=== PATIENT | male | born 1960 | race Caucasian/White ===

== ENCOUNTER 2017-06-19 23:03 | Observation (INO) | payer OTHER ==
[~2017-06-19] VITALS: Ht 167.6 cm; Wt 115.2 kg
[2017-06-19] MEDS ORDERED: FENTANYL CITRATE INJ 50 MCG/1 ML 2 ML VIAL IV STA (23:23)
[2017-06-19] MEDS ORDERED: LOSA1TAB PO (23:40)
[2017-06-19] MEDS ORDERED: HYDR25TA4 PO (23:41)
[2017-06-19] MEDS ORDERED: MONT1TAB3 PO (23:42)
[2017-06-19] MEDS ORDERED: CLR10 PO (23:42)
[2017-06-19] MEDS ORDERED: POTA10CA28 PO (23:43)
[2017-06-19 23:49] LABS: ALT/SGPT 67 U/L (12-78); BLOOD UREA NITROGEN 17 mg/dl (7-18); BUN/CREATININE RATIO 17.6 (10-20); CARBON DIOXIDE 30 mmol/L (21-32); CHLORIDE 103 mmol/L (98-107); CREATININE 0.96 mg/dl (0.60-1.40); GLUCOSE 139 mg/dl (70-99); MAGNESIUM 2.2 mg/dl (1.8-2.4); POTASSIUM 3.2 mmol/L (3.5-5.1); SODIUM 140 mmol/L (136-145)
[2017-06-19 23:54] LABS: ALKALINE PHOSPHATASE 48 U/L (45-117); AST/SGOT 28 U/L (15-37)
--- NOTE | 2017-06-19 23:57 | EMERGENCY ROOM VISIT NOTE ---
History Report prepared by Renard: Michel Spence Under the Supervision of: Dr. Mel Jimenez D.O. First contact with patient: 23:07 Chief Complaint: CHEST PAIN Stated Complaint: CHEST PAIN, SOB History of Present Illness The patient is a 57 year old male who presents to the Emergency Room with complaints of constant chest pressure starting a few hours prior to arrival while not doing anything. He states that for the past four days he was having indigestion, which is not out of the ordinary due to GERD, and then tonight the pain got much worse. The patient is additionally complaining of shortness of breath, high blood pressure, light headedness, some sweating, and left shoulder , arm, and hand pain, and he has been having some left foot tingling. He states that the breathing treatment that he got en route helped the pain, and the nitro and morphine he got did not help as much. The patient additionally adds that he has chronic right sided abdominal pain which started a few years ago after getting his gall bladder out, and he has chronic dry mouth and eyes at night when he sleeps. He notes that he does have sleep apnea. The patient states that he has had a heart catheterization, though he never had a stent placed. He adds that he has a history of hypertension, and he takes losartan. The patient states that he has never smoked. Pt denies headache, change in vision, fevers, nausea, vomiting, diarrhea, pain with urination, and melena. Pt given asa, nitro, and neb tx by EMS prior to arrival. States he feels improved since treatments. No recent illness/URI symptoms. Source of History: patient Onset: a couple hours prior to arrival Position: chest Quality: pressure Timing: constant Associated Symptoms: + SOB Note: Associated symptoms: high blood pressure, light headedness, some sweating, and left shoulder, arm, and hand pain, and he has been having some left foot tingling Review of Systems See HPI for pertinent positives & negatives. A total of 10 systems reviewed and were otherwise negative. Past Medical & Surgical Medical Problems: (1) Chest pain (2) Chronic RUQ pain (3) HTN (hypertension) Surgical Problems: (1) History of cholecystectomy Social History Smoking Status: Never Smoker Marital Status: Occupation Status: retired Current/Historical Medications Scheduled Hydrochlorothiazide (Hctz), 25 MG PO DAILY Loratadine (Claritin), 10 MG PO DAILY Losartan Potassium (Cozaar), 25 MG PO BID Montelukast Sodium (Singulair), 10 MG PO DAILY Potassium Chloride (Micro-K Ext Rel), Unknown Dose PO DAILY Allergies Coded Allergies: No Known Allergies (Unverified , 06/19/17) Physical Exam Vital Signs Date Time Temp Pulse Resp B/P (MAP) Pulse Ox O2 Delivery O2 Flow Rate FiO2 06/20/17 01:03 63 14 123/69 95 Room Air 06/19/17 23:41 71 18 116/64 95 Room Air 06/19/17 23:13 76 06/19/17 23:07 95 Room Air 06/19/17 23:07 36.9 79 16 130/70 95 Room Air 06/19/17 23:07 95 Room Air Physical Exam GENERAL: alert, well appearing, well nourished, no distress, non-toxic EYE EXAM: normal conjunctiva, PERRL and EOM's grossly intact OROPHARYNX: no exudate, no erythema, lips, buccal mucosa, and tongue normal and mucous membranes are moist NECK: supple, no nuchal rigidity, no adenopathy, non-tender LUNGS: Clear to auscultation. Normal chest wall mechanics HEART: no murmurs, S1 normal and S2 normal CHEST: no reproducible chest pain ABDOMEN: Right upper quadrant pain (chronic per patient) abdomen soft, normo- active bowel sounds, no masses, no rebound or guarding. BACK: Back is symmetrical on inspection and there is no deformity, no midline tenderness, no CVA tenderness. SKIN: no rashes and no bruising UPPER EXTREMITIES: Tenderness at the left shoulder near the AC joint. upper extremities are grossly normal. LOWER EXTREMITIES: No pitting edema. NEURO EXAM: Normal sensorium, cranial nerves II-XII grossly intact, normal speech, no gross weakness of arms, no gross weakness of legs. Gross sensation intact. Medical Decision & Procedures ER Provider Diagnostic Interpretation: Radiology results have been interpreted by me. No cardiomegaly. No effusion. No wide mediastinum. No focal infiltrate. No pulmonary edema. Laboratory Results 06/19/17 22:21 Red Blood Count 4.95, Mean Corpuscular Volume 89.3, Mean Corpuscular Hemoglobin 31.3, Mean Corpuscular Hemoglobin Concent 35.1, Mean Platelet Volume 9.5, Neutrophils (%) (Auto) 62.2, Lymphocytes (%) (Auto) 28.5, Monocytes (%) (Auto) 7.3, Eosinophils (%) (Auto) 1.2, Basophils (%) (Auto) 0.5, Neutrophils # (Auto) 5.83, Lymphocytes # (Auto) 2.68, Monocytes # (Auto) 0.69, Eosinophils # (Auto) 0.11, Basophils # (Auto) 0.05 Test 06/19/17 22:21 White Blood Count 9.39 K/uL (4.8-10.8) Red Blood Count 4.95 M/uL (4.7-6.1) Hemoglobin 15.5 g/dL (14.0-18.0) Hematocrit 44.2 % (42-52) Mean Corpuscular Volume 89.3 fL (80-100) Mean Corpuscular Hemoglobin 31.3 pg (25-34) Mean Corpuscular Hemoglobin Concent 35.1 g/dl (32-36) Platelet Count 200 K/uL (130-400) Mean Platelet Volume 9.5 fL (7.4-10.4) Neutrophils (%) (Auto) 62.2 % Lymphocytes (%) (Auto) 28.5 % Monocytes (%) (Auto) 7.3 % Eosinophils (%) (Auto) 1.2 % Basophils (%) (Auto) 0.5 % Neutrophils # (Auto) 5.83 K/uL (1.4-6.5) Lymphocytes # (Auto) 2.68 K/uL (1.2-3.4) Monocytes # (Auto) 0.69 K/uL (0.11-0.59) Eosinophils # (Auto) 0.11 K/uL (0-0.5) Basophils # (Auto) 0.05 K/uL (0-0.2) RDW Standard Deviation 43.7 fL (36.4-46.3) RDW Coefficient of Variation 13.4 % (11.5-14.5) Immature Granulocyte % (Auto) 0.3 % Immature Granulocyte # (Auto) 0.03 K/uL (0.00-0.02) Platelet Estimate NORMAL Red Blood Cell Morphology Unremarkable Prothrombin Time 10.5 SECONDS (9.0-12.0) Prothromb Time International Ratio 1.0 (0.9-1.1) D-Dimer 200 ug/L FEU (0-500) Estimated Average Glucose 111 mg/dl Hemoglobin A1c 5.5 % (4.5-5.6) Total Bilirubin 0.5 mg/dl (0.2-1) Aspartate Amino Transf (AST/SGOT) 28 U/L (15-37) Alanine Aminotransferase (ALT/SGPT) 67 U/L (12-78) Alkaline Phosphatase 48 U/L (45-117) Pro-B-Type Natriuretic Peptide 32 pg/ml (0-900) Total Protein 7.3 gm/dl (6.4-8.2) Albumin 3.7 gm/dl (3.4-5.0) Globulin 3.6 gm/dl (2.5-4.0) Albumin/Globulin Ratio 1.0 (0.9-2) Lipase 179 U/L (73-393) Laboratory results per my review. Medications Administered Medications (Trade) Dose Ordered Sig/Peggy Route Start Time Stop Time Status Last Admin Dose Admin Fentanyl Citrate (Fentanyl Inj) 100 mcg NOW STAT IV 06/19/17 23:23 06/19/17 23:25 DC 06/19/17 23:43 100 MCG Al Hydroxide/Mg Hydroxide (Maalox Susp) 15 ml NOW STAT PO 06/20/17 00:50 06/20/17 00:51 DC 06/20/17 01:03 15 ML ECG Indication: chest pain Rate (beats per minute): 73 Rhythm: normal sinus Findings: no acute ischemic change, no ectopy, other (normal intervals, normal axis) ED Course 2307: The patient was evaluated in room A12. A complete history and physical exam was performed. 2323: Fentanyl 100mcg IV 0046: I reevaluated the patient, and I updated him on the results. I discussed the treatment plan with him, and he was agreeable. 0050: Maalox Susp 15ml PO 0100: I reviewed the patient's case with Dr. Sarkar. She will evaluate the patient for further management. Medical Decision Differential diagnosis: Etiologies such as cardiac ischemia, aortic dissection, pulmonary embolism, pneumonia, pneumothorax, musculoskeletal, infections, pericarditis, myocarditis , esophageal rupture, gastrointestinal, as well as others were entertained. Pt with risk factors for ACS and atypical presentation. Feels sx are different from GERD sx which he has a hx of. No recent URI. No risk factors for PE. Doubt dissection/hypertensive urgency or emergency. VS stable. Pt improved with meds. No evidence of pneumonia/effusion. Medication Reconcilliation Current Medication List: was personally reviewed by me Blood Pressure Screening Patient's blood pressure: Normal blood pressure Consults Time Called: 49 Consulting Physician: Dr. Sarkar Returned Call: 010 I reviewed the patient's case with Antonina. She will evaluate the patient with Dr. Manning for further management. Impression Primary Impression: Left sided chest pain Additional Impression: Trouble breathing Scribe Attestation The scribe's documentation has been prepared under my direction and personally reviewed by me in its entirety. I confirm that the note above accurately reflects all work, treatment, procedures, and medical decision making performed by me. Departure Information Dispostion Being Evaluated By Hospitalist Prescriptions Losartan Potassium (COZAAR) 25 Mg Tab 25 MG PO BID for 30 Days, #60 TAB Prov: Gene Sanford MD, PhD 06/21/17 Referrals No Doctor, Assigned (PCP) Patient Instructions My [facility] Problem Qualifiers
[2017-06-20] VITALS (10 sets, daily range): BP systolic 117–181; BP diastolic 64–95; PULSE 50–64; TEMP 36.5–37.1; O2SAT 91–100; Ht 167.6 cm; Wt 115.2 kg
[2017-06-20 00:02] LABS: PROTHROMBIN TIME (PATIENT) 10.5 SECONDS (9.0-12.0)
[2017-06-20 00:10] LABS: BASO % 0.5 %; BASO ABS # 0.05 K/uL (0-0.2); COMPLETE YES; EOS % 1.2 %; HEMATOCRIT 44.2 % (42-52); IG% 0.3 %; LYMPH % 28.5 %; LYMPH ABS # 2.68 K/uL (1.2-3.4); MEAN CELL VOLUME 89.3 fL (80-100); MEAN CORPUSCULAR HEMOGLOBIN 31.3 pg (25-34); MEAN CORPUSCULAR HGB CONC 35.1 g/dl (32-36); MEAN PLATELET VOLUME 9.5 fL (7.4-10.4); MONO % 7.3 %; NEUT % 62.2 %; PLATELET COUNT 200 K/uL (130-400); PLT ESTIMATE NORMAL; RED BLOOD COUNT 4.95 M/uL (4.7-6.1); WHITE BLOOD COUNT 9.39 K/uL (4.8-10.8)
[2017-06-20] MEDS ORDERED: ALUMINUM/MAGNESIUM SUSP 30 ML UDC PO STA (00:50)
[2017-06-20] MEDS ORDERED: NITROGLYCERIN 0.4 MG SL PER TAB CHARGE SL PRN (01:30)
[2017-06-20] MEDS ORDERED: ONDANSETRON INJ 2 MG/ML 2 ML VIAL IV PRN (01:30)
[2017-06-20] MEDS ORDERED: ALUMINUM/MAGNESIUM/SIMETH (MAALOX MAX) 30 ML UDC PO PRN (01:30)
[2017-06-20] MEDS ORDERED: MAGNESIUM HYDROXIDE SUSP 30 ML UDC PO PRN (01:30)
[2017-06-20] MEDS ORDERED: POLYETHYLENE (MIRALAX) 17 GM PACK PO PRN (01:30)
--- NOTE | 2017-06-20 01:34 | History and Physical ---
History & Physical Date & Time of Service: Jun 20, 2017 at 01:29 Chief Complaint: Chest Pain, Sob Primary Care Physician: No Doctor, Assigned History of Present Illness Source: patient This is a 57 y/o M w/ h/o HTN, sleep apnea, who presents with left sided chest pain that has gotten progressively worse of the last 4 days. Rates his pain a 7/ 10 radiating below his left scapula and down his left arm. He does have a history of indigestion that has been difficult to treat but this pain is much worse. He felt like someone was sitting on his chest. He also had accompanying shortness of breath, sweating and light headedness. EMS was called and he was given nebulizer treatment that helped his pain. He reports having right sided abdominal pain for several years s/p teodoro. He has had a heart cath in the past that was unremarkable ROS otherwise negative. Past Medical/Surgical History HTN Sleep apnea Family History HTN Social History Smoking Status: Never Smoker Alcohol Use: occasionally Marital Status: Housing status: lives with family Occupational Status: retired Allergies Coded Allergies: No Known Allergies (Unverified , 06/19/17) Home Medications Scheduled Hydrochlorothiazide (Hctz), 25 MG PO DAILY Loratadine (Claritin), 10 MG PO DAILY Losartan Potassium (Cozaar), 25 MG PO DAILY Montelukast Sodium (Singulair), 10 MG PO DAILY Potassium Chloride (Micro-K Ext Rel), Unknown Dose PO DAILY Review of Systems Constitutional: + sweats, No fever, No chills Respiratory: + shortness of breath, No cough, No sputum Cardiovascular: + chest pain Abdomen: + pain (Right sided), + nausea, No vomiting, No diarrhea, No constipation Musculoskeletal: + joint pain, + muscle pain Genitourinary - Male: No hematuria, No dysuria, No urinary frequency, No urinary urgency Physical Exam Vital Signs Date Time Temp Pulse Resp B/P (MAP) Pulse Ox O2 Delivery O2 Flow Rate FiO2 06/20/17 01:03 63 14 123/69 95 Room Air 06/19/17 23:41 71 18 116/64 95 Room Air 06/19/17 23:13 76 06/19/17 23:07 95 Room Air 06/19/17 23:07 36.9 79 16 130/70 95 Room Air 06/19/17 23:07 95 Room Air General Appearance: no apparent distress Eyes: PERRL, EOMI ENT: hearing grossly normal Neck: supple, no JVD Respiratory/Chest: lungs clear, normal breath sounds, no respiratory distress, no accessory muscle use Cardiovascular: regular rate, rhythm, no edema, no murmur, normal peripheral pulses Abdomen/GI: normal bowel sounds, non tender, soft Back: normal inspection, no CVA tenderness, no muscle spasm Extremities/Musculoskelatal: no calf tenderness, no pedal edema, normal range of motion Neurologic/Psych: inclusion intern II-XII nml as tested, no motor/sensory deficits, alert, normal mood/affect, oriented x 3 Diagnostics Laboratory Results Results Past 24 Hours Test 06/19/17 22:21 Range/Units White Blood Count 9.39 4.8-10.8 K/uL Red Blood Count 4.95 4.7-6.1 M/uL Hemoglobin 15.5 14.0-18.0 g/dL Hematocrit 44.2 42-52 % Mean Corpuscular Volume 89.3 80-100 fL Mean Corpuscular Hemoglobin 31.3 25-34 pg Mean Corpuscular Hemoglobin Concent 35.1 32-36 g/dl Platelet Count 200 130-400 K/uL Mean Platelet Volume 9.5 7.4-10.4 fL Neutrophils (%) (Auto) 62.2 % Lymphocytes (%) (Auto) 28.5 % Monocytes (%) (Auto) 7.3 % Eosinophils (%) (Auto) 1.2 % Basophils (%) (Auto) 0.5 % Neutrophils # (Auto) 5.83 1.4-6.5 K/uL Lymphocytes # (Auto) 2.68 1.2-3.4 K/uL Monocytes # (Auto) 0.69 0.11-0.59 K/uL Eosinophils # (Auto) 0.11 0-0.5 K/uL Basophils # (Auto) 0.05 0-0.2 K/uL RDW Standard Deviation 43.7 36.4-46.3 fL RDW Coefficient of Variation 13.4 11.5-14.5 % Immature Granulocyte % (Auto) 0.3 % Immature Granulocyte # (Auto) 0.03 0.00-0.02 K/uL Platelet Estimate NORMAL Red Blood Cell Morphology Unremarkable Prothrombin Time 10.5 9.0-12.0 SECONDS Prothromb Time International Ratio 1.0 0.9-1.1 D-Dimer 200 0-500 ug/L FEU Sodium Level 140 136-145 mmol/L Potassium Level 3.2 3.5-5.1 mmol/L Chloride Level 103 98-107 mmol/L Carbon Dioxide Level 30 21-32 mmol/L Anion Gap 7.0 3-11 mmol/L Blood Urea Nitrogen 17 7-18 mg/dl Creatinine 0.96 0.60-1.40 mg/dl Est Creatinine Clear Calc Drug Dose 100.0 ml/min Estimated GFR () 102.0 Estimated GFR (Non- 88.0 BUN/Creatinine Ratio 17.6 10-20 Random Glucose 139 70-99 mg/dl Calcium Level 9.0 8.5-10.1 mg/dl Magnesium Level 2.2 1.8-2.4 mg/dl Total Bilirubin 0.5 0.2-1 mg/dl Aspartate Amino Transf (AST/SGOT) 28 15-37 U/L Alanine Aminotransferase (ALT/SGPT) 67 12-78 U/L Alkaline Phosphatase 48 45-117 U/L Troponin I < 0.015 0-0.045 ng/ml Pro-B-Type Natriuretic Peptide 32 0-900 pg/ml Total Protein 7.3 6.4-8.2 gm/dl Albumin 3.7 3.4-5.0 gm/dl Globulin 3.6 2.5-4.0 gm/dl Albumin/Globulin Ratio 1.0 0.9-2 Lipase 179 73-393 U/L Impression Assessment and Plan This is a 57 y/o M who presents with chest pain concerning for acs, vs. gerd. vs. anxiety etc. Chest pain r/o Initial trop negative Serial enzymes Stress Echo AM Admit to tele EKG Am A1c, lipid panel Hypokalemia NSS w/ K+ HTN HCTZ Losartan DVT proph: Heparin Code: Full Resident Physician Supervision Note: I was present with Dr. Cat during the history and exam. I discussed the case with the resident and agree with the findings and plan as documented in the note. Any exceptions or clarifications are listed here: 57 y/o M Hx HTN, GERD - presenting with central pressure-like CP - initial trop/ EKG WNL - Risk: Age , truncal obesity, HTN - states he had a normal cath 5-6 years prior however. OE AAO x 3 S1,2 R CTAB NT, ND No CCE P: Serial enzymes - monitor on telemetry may need inpt stress Cont Losartan and HCTZ Documented By: Tommie Dumont VTE Prophylaxis VTE Risk Assessment Done? Y/N: Yes Risk Level: Moderate
[2017-06-20] MEDS: NSS + 20MEQ KCL 1000ML 1,000 ML IV SCH ×3 (02:41→21:18)
[2017-06-20] MEDS ORDERED: IV FLUIDS COMPLETED PRN (03:15)
--- NOTE | 2017-06-20 06:36 | DIAGNOSTIC IMAGING REPORT ---
CHEST ONE VIEW PORTABLE CLINICAL HISTORY: Atypical chest pain and shortness of breath COMPARISON STUDY: No previous studies for comparison. FINDINGS: The cardiac and mediastinal contours are normal. There is no evidence of focal pulmonary consolidation. There is no evidence of failure. No pleural effusions are visualized.[ IMPRESSION: No active disease in the chest. Electronically signed by: Rob Kinsey M.D. 06/20/2017 6:35 AM Dictated Date/Time: 06/20/2017 6:35 AM
[2017-06-20 07:20] LABS: ESTIMATED AVERAGE GLUCOSE 111 mg/dl; HA1C FLAG Normal (Normal)
[2017-06-20] MEDS: MONTELUKAST SOD 10 MG TAB PO SCH (07:47)
[2017-06-20] MEDS: LORATADINE 10 MG TAB PO SCH (07:47)
[2017-06-20] MEDS: LOSARTAN POTASSIUM 25 MG TAB PO SCH (07:47)
[2017-06-20] MEDS: HYDROCHLOROTHIAZIDE 25 MG TAB PO SCH (07:47)
[2017-06-20] MEDS: HEPARIN SOD 5000 UNIT/0.5 ML CARP SQ SCH ×2 (07:50→21:00)
[2017-06-20] MEDS ORDERED: FAMOTIDINE 20 MG TAB PO ONE (08:45)
[2017-06-20] MEDS ORDERED: PERFLUTREN LIPID MICROSPHERE (DEFINITY) IV ONE (09:36)
[2017-06-20 09:45] LABS: BUN/CREATININE RATIO 21.6 (10-20); CALCIUM 7.9 mg/dl (8.5-10.1); CREATININE 0.77 mg/dl (0.60-1.40); POTASSIUM 3.9 mmol/L (3.5-5.1)
[2017-06-20] MEDS: PANTOprazole INJ 40 MG in SYRINGE 0 ML IV SCH (11:09)
[2017-06-20] MEDS ORDERED: OPTIRAY 320 IV PRN (11:30)
--- NOTE | 2017-06-20 12:19 | Progress Note ---
Subjective Date of Service: Jun 20, 2017. Subjective Pt evaluation today including: conversation w/ patient, physical exam, chart review, lab review, review of studies, conversation w/ international travel consultant, review of inpatient medication list Still has chest pain but is better, which is chest height, reported right lower chest pain too for years , the pain is getting worse when he pending our , and nobody able to figure out Problem List Medical Problems: (1) Left sided chest pain Status: Acute (2) Trouble breathing Status: Acute Review of Systems Constitutional: + weakness, No fever, No chills, No sweats, No weight loss, No fatigue, No problem reported Eyes: No worsening of vision, No eye pain, No redness, No discharge, No diplopia ENT: No hearing loss, No unusual epistaxis, No nasal symptoms, No sore throat, No tinnitus, No dental problems, No trouble swallowing Respiratory: No cough, No sputum, No wheezing, No shortness of breath, No dyspnea on exertion, No dyspnea at rest, No hemoptysis Cardiac: + see HPI, No chest pain, No orthopnea, No PND, No edema, No claudication, No palpitations Abdomen: No pain, No nausea, No vomiting, No diarrhea, No constipation Musculoskeletal: No joint pain, No muscle pain, No swelling, No calf pain Male : No dysuria, No urinary frequency, No incontinence, No nocturia more than once/night, No slowing stream, No hematuria Neurologic: No memory loss, No paralysis, No weakness, No numbness/tingling, No vertigo, No balance problems Psychiatric: No depression symptoms, No anhedonism, No anxiety, No insomnia, No substance abuse Heme: No abnormal bleeding/bruising, No clotting problems, No swollen lymph nodes, No night sweats Endo: No fatigue, No excessive thirst, No excessive urination Skin: No rash, No itch, No new/changing skin lesions, No color change, No bleeding Objective Vital Signs Date Time Temp Pulse Resp B/P (MAP) Pulse Ox O2 Delivery O2 Flow Rate FiO2 06/20/17 12:05 100 Room Air 06/20/17 11:51 36.5 50 18 91 Room Air 06/20/17 08:41 100 Room Air 06/20/17 08:28 36.5 53 16 181/95 (123) 100 Room Air 06/20/17 04:08 Room Air 06/20/17 03:49 36.7 60 19 117/64 (81) 92 Room Air 06/20/17 02:04 36.5 60 18 129/77 (94) 95 Room Air 06/20/17 02:00 36.5 18 129/77 93 Room Air 06/20/17 01:46 64 16 115/67 96 06/20/17 01:03 63 14 123/69 95 Room Air 06/19/17 23:41 71 18 116/64 95 Room Air 06/19/17 23:13 76 06/19/17 23:07 95 Room Air 06/19/17 23:07 36.9 79 16 130/70 95 Room Air 06/19/17 23:07 95 Room Air Physical Exam General Appearance: WD/WN, no apparent distress, + obese Eyes: normal inspection, PERRL, EOMI, sclerae normal ENT: normal ENT inspection, hearing grossly normal, pharynx normal Neck: supple, no adenopathy, thyroid normal, no JVD, no carotid bruits, trachea midline Respiratory/Chest: chest non-tender, normal breath sounds, no respiratory distress, no accessory muscle use, + decreased breath sounds Cardiovascular: regular rate, rhythm, no edema, no gallop, no JVD, no murmur Abdomen: normal bowel sounds, soft, no organomegaly, no pulsatile mass, + tenderness (right upper quadrant deep tendon) Extremities: normal range of motion, non-tender, normal inspection, no pedal edema, no calf tenderness, normal capillary refill, pelvis stable Neurologic/Psychiatric: athletic scout II-XII nml as tested, no motor/sensory deficits, alert, normal mood/affect, oriented x 3 Skin: normal color, warm/dry, no rash Lymphatic: no adenopathy Laboratory Results Last 24 Hours Test 06/19/17 22:21 06/20/17 07:25 White Blood Count 9.39 K/uL Red Blood Count 4.95 M/uL Hemoglobin 15.5 g/dL Hematocrit 44.2 % Mean Corpuscular Volume 89.3 fL Mean Corpuscular Hemoglobin 31.3 pg Mean Corpuscular Hemoglobin Concent 35.1 g/dl Platelet Count 200 K/uL Mean Platelet Volume 9.5 fL Neutrophils (%) (Auto) 62.2 % Lymphocytes (%) (Auto) 28.5 % Monocytes (%) (Auto) 7.3 % Eosinophils (%) (Auto) 1.2 % Basophils (%) (Auto) 0.5 % Neutrophils # (Auto) 5.83 K/uL Lymphocytes # (Auto) 2.68 K/uL Monocytes # (Auto) 0.69 K/uL Eosinophils # (Auto) 0.11 K/uL Basophils # (Auto) 0.05 K/uL RDW Standard Deviation 43.7 fL RDW Coefficient of Variation 13.4 % Immature Granulocyte % (Auto) 0.3 % Immature Granulocyte # (Auto) 0.03 K/uL Platelet Estimate NORMAL Red Blood Cell Morphology Unremarkable Prothrombin Time 10.5 SECONDS Prothromb Time International Ratio 1.0 D-Dimer 200 ug/L FEU Sodium Level 140 mmol/L 142 mmol/L Potassium Level 3.2 mmol/L 3.9 mmol/L Chloride Level 103 mmol/L 106 mmol/L Carbon Dioxide Level 30 mmol/L 29 mmol/L Anion Gap 7.0 mmol/L 7.0 mmol/L Blood Urea Nitrogen 17 mg/dl 17 mg/dl Creatinine 0.96 mg/dl 0.77 mg/dl Est Creatinine Clear Calc Drug Dose 100.0 ml/min 126.3 ml/min Estimated GFR () 102.0 117.6 Estimated GFR (Non- 88.0 101.4 BUN/Creatinine Ratio 17.6 21.6 Random Glucose 139 mg/dl 102 mg/dl Estimated Average Glucose 111 mg/dl Hemoglobin A1c 5.5 % Calcium Level 9.0 mg/dl 7.9 mg/dl Magnesium Level 2.2 mg/dl Total Bilirubin 0.5 mg/dl Aspartate Amino Transf (AST/SGOT) 28 U/L Alanine Aminotransferase (ALT/SGPT) 67 U/L Alkaline Phosphatase 48 U/L Troponin I < 0.015 ng/ml < 0.015 ng/ml Pro-B-Type Natriuretic Peptide 32 pg/ml Total Protein 7.3 gm/dl Albumin 3.7 gm/dl Globulin 3.6 gm/dl Albumin/Globulin Ratio 1.0 Lipase 179 U/L Assessment and Plan 57 y/o M who presents with chest pain concerning for acs, vs. gerd. vs. anxiety etc. Chest pain r/o trop negative 2 set Not able to do Stress Echo AM because not able to be on treadmill, and heart rate not able to be reached to target level, Per bottle feeder he does not want to do the dobutamine stress for now After further discussion, patient agreed to do it tomorrow, Right chest pain, d-dimer around 200, the possibility of thrombosis is low However will check chest CT and right upper quadrant ultrasound to evaluation of right lower chest pain Hypokalemia, replaced and resolved HTN, stable continue current meds DVT proph: Heparin Code: Full Continued [facility] stay due to: multiple IV medications needed Discharge planning: home
--- NOTE | 2017-06-20 12:51 | EXERCISE STRESS ECHO ---
*NOTICE TO RECEIVING REPUBLICAN AGENCY This information is strictly Confidential and protected under [place] law. [place] law prohibits you from making any further disclosure of this information unless further disclosure is expressly permitted by the written consent of the person to whom it pertains or is authorized by law. A general authorization for the release of medical or other information is not sufficient for this purpose. Hospital accepts no responsibility if the information is made available to any other person, INCLUDING THE PATIENT. Interpretation Summary * Name: DIPIKA JACKSON Study Date: 06/20/2017 07:58 AM BP: 161/75 mmHg * Patient Location: C.2E\S\E207\S\1 HR: 71 * : 1960 (M/d/yyyy) Gender: Male Height: 66 in * Age: 57 yrs Ethnicity: [place] Weight: 242 lb * Ordering Physician: Patsy Sarkar * Referring Physician: Self, Referred * Performed By: Tiffanie Penn RDCS * * Reason For Study: CHEST PAIN * BSA: 2.2 m2 * -- Conclusions -- * Left ventricular systolic function is normal. * Severely reduced exercise capacity * No evidence of ischemia at the workload achieved * Nondiagnostic exercise echocardiogram due to poor inability to achieve target heart rate Procedure Details * ECHOEX, CPT #50230 * A contrast injection of Definity was performed to improve assessment of LV function. * Contrast was injected into an intravenous site in the left arm. * One vial of Definity ultrasound contrast was diluted in normal saline to a total volume of 10 ml. A total of '4' ml of solution was administered during imaging. * Lot # [id number] of Definity utilized for procedure. * Expiration date JUN 14. * The attending nurse who injected the contrast agent was SOMMER GODINEZ RN. Left Ventricular Findings with Stress * Severely reduced exercise capacity No evidence of ischemia at the workload achieved Nondiagnostic exercise echocardiogram due to poor inability to achieve target heart rate Left Ventricle * The left ventricle is normal in size. * There is normal left ventricular wall thickness. * Ejection Fraction = 60-65%. * Left ventricular systolic function is normal. * The left ventricular wall motion is normal. Right Ventricle * The right ventricle is grossly normal size. * The right ventricular systolic function is normal. Atria * The left atrial size is normal. * Right atrial size is normal. Mitral Valve * The mitral valve anatomy is normal. * Significant mitral regurgitation is absent. Tricuspid Valve * The tricuspid valve is not well visualized. * Significant tricuspid regurgitation is absent. Aortic Valve * The aortic valve is normal in structure and function. * No hemodynamically significant valvular aortic stenosis. * There is no significant aortic regurgitation. Great Vessels * The aortic root is normal size. Pericardium * There is no pericardial effusion. Stress Parameters * Normal baseline electrocardiogram. * Stress ECG: No ST changes. No arrhythmias. * The stress portion of this study was personally supervised by the undersigned interpreting physician. * Rest heart rate was '71' BPM. * Rest blood pressure was '161/75' * Maximum heart rate achieved was 114 bpm. * Maximum heart rate was 69 % of maximum age-predicted heart rate. * Maximum blood pressure was '200/62' * Total exercise time was '1:10' * Maximum exercise MET level achieved was '3.50' METS * Maximum treadmill speed was '1.70' miles per hour. * Maximum treadmill elevation was '10.00'% grade. * Exercise was terminated due to 'FATIGUE' Left Ventricular Findings with Stress * The patient was only able to exercise for 1 minutes and 10 seconds. The test was discontinued due to shortness of breath, dizziness and pain in the right ribcage. Baseline EKG was normal without changes during exercise Baseline echocardiogram revealed normal LV systolic function There was normal augmentation at the heart rate achieved without inducible wall motion abnormalities There was baseline hypertension MMode 2D Measurements and Calculations IVSd 1.1 cm IVSs 1.9 cm LVIDd 4.9 cm LVIDs 3.2 cm LVPWd 1.5 cm LVPWs 2.4 cm IVS/LVPW 0.72 FS 35.2 % EDV(Teich) 113.7 ml ESV(Teich) 40.5 ml EF(Teich) 64.4 % EDV(cubed) 118.8 ml ESV(cubed) 32.3 ml EF(cubed) 72.8 % % IVS thick 73.0 % % LVPW thick 58.7 % LV mass(C)d 248.8 grams LV mass(C)dI 114.7 grams/m\S\2 LV mass(C)s 310.0 grams LV mass(C)sI 142.9 grams/m\S\2 SV(Teich) 73.2 ml SI(Teich) 33.8 ml/m\S\2 SV(cubed) 86.5 ml SI(cubed) 39.9 ml/m\S\2 Ao root diam 3.6 cm Ao root area 10.0 cm\S\2 LA dimension 3.5 cm LA/Ao 0.97 LVAd ap4 34.3 cm\S\2 LVLd ap4 8.4 cm EDV(MOD-sp4) 120.0 ml EDV(sp4-el) 118.6 ml LVAs ap4 19.7 cm\S\2 LVLs ap4 7.4 cm ESV(MOD-sp4) 55.3 ml ESV(sp4-el) 44.2 ml EF(MOD-sp4) 53.9 % EF(sp4-el) 62.7 % SV(MOD-sp4) 64.8 ml SI(MOD-sp4) 29.9 ml/m\S\2 SV(sp4-el) 74.4 ml SI(sp4-el) 34.3 ml/m\S\2 Doppler Measurements and Calculations MV E max mansi 96.5 cm/sec MV A max mnasi 69.4 cm/sec MV E/A 1.4 MV dec time 0.20 sec Ao V2 max 127.9 cm/sec Ao max PG 6.5 mmHg Ao max PG (full) 3.6 mmHg LV V1 max PG 2.9 mmHg LV V1 max 85.9 cm/sec
--- NOTE | 2017-06-20 14:03 | DIAGNOSTIC IMAGING REPORT ---
CT SCAN OF THE CHEST WITH IV CONTRAST CLINICAL HISTORY: Atypical chest pain. COMPARISON STUDY: Chest x-ray dated 06/19/2017. TECHNIQUE: Following the IV administration of 120 cc of Optiray 320, CT scan of the thorax was performed from the thoracic inlet to the upper abdomen. Images are reviewed in the axial, sagittal, and coronal planes. IV contrast was administered without complication. A dose lowering technique was utilized adhering to the principles of ALARA. CT DOSE: 660.48 mGy.cm FINDINGS: Thyroid: Imaged portions of the thyroid gland are normal in size and attenuation. Thoracic aorta: The thoracic aorta is normal in caliber and demonstrates standard 3-vessel arch anatomy. No dissection is seen. Pulmonary vasculature: The pulmonary trunk is normal in caliber. There are no filling defects identified in the central pulmonary vessels to indicate pulmonary embolus. Note that this examination was not protocoled for evaluation of the pulmonary arteries. Heart: The heart is normal in size and configuration, and without pericardial effusion. Lungs and pleural spaces: There is no airspace consolidation or pleural effusion. There are least 5 noncalcified pulmonary nodules. The largest is seen in the right upper lobe on image #141 and measures 5 mm. 3 mm nodules are seen at the left apex on image #69, in the left lower lobe on image #149, and in the left lower lobe on image #214. Numerous small calcified granulomas are also seen. There is dependent atelectasis. The trachea and central airways are clear. Mediastinum: There is no mediastinal lymphadenopathy. Mihaela: Clear. Axillae: There is no axillary lymphadenopathy. Upper abdomen: There is a 1.4 cm lesion seen in hepatic segment VII on image #214. The appearance suggests a small hemangioma but this is incomplete characterized. Steatosis is questioned. A tiny hiatal hernia is identified. Skeletal structures: No lytic or blastic bony lesions are seen. IMPRESSION: 1. No acute cardiopulmonary abnormality is seen. There is no airspace consolidation or pleural effusion. 2. There are at least 5 noncalcified pulmonary nodules measuring up to 5 mm. These are pathologically indeterminant but of low suspicion. Follow-up as per the Fleischner criteria is recommended. See below. 3. There is a 1.4 cm lesion in the right lobe of liver below the diaphragm. This is incompletely characterized and demonstrates patchy enhancement, likely representing a hemangioma. If definitive catheterization desired an MRI of the liver would be appropriate. 4. Additional findings as above. Please refer to below summary of Fleischner criteria recommendations for follow-up of incidental CT nodules (Edin Philip, Guidelines for management of small pulmonary nodules detected on CT scans: A statement from the Fleischner Society, Radiology 237: [phone].) SOLID NODULES Solitary nodule size: <6 mm * low risk patients: no follow-up needed * high risk patients: optional CT at 12 months Solitary nodule size: 6-8 mm * low risk patients: follow-up at 6-12 months, then consider further follow-up at 18-24 months * high risk patients: initial follow-up CT at 6-12 months and then at 18-24 months if no change Solitary nodule size: >8 mm * either low or high risk patients - consider follow-up CT at 3 months, and/or CT-PET, and/or biopsy Multiple nodules size: <6 mm * low risk patients: no routine follow-up * high risk patients: optional CT at 12 months Multiple nodules size: 6-8 mm * low risk patients: follow-up at 3-6 months, then consider further follow-up at 18-24 months * high risk patients: follow-up at 3-6 months, then at 18-24 months if no change Multiple nodules size: >8 mm * low risk patients: follow-up at 3-6 months, then consider further follow-up at 18-24 months * high risk patients: follow-up at 3-6 months, then at 18-24 months if no change Note: newly detected indeterminate nodule in persons 35 years of age or older. * low risk patients: minimal or absent history of smoking and/or other known risk factors * high risk patients: history of smoking or of other known risk factors (e.g. first degree relative with lung cancer, or exposure to asbestos, radon, uranium) * if a nodule up to 8 mm is partly solid or is ground glass further follow-up is required after 24 months to exclude possible slow growing adenocarcinoma (JER) SUBSOLID NODULES Solitary pure ground-glass nodule * nodule size <6 mm - no CT follow-up required * nodule size >=6 mm - follow-up CT at 6-12 months, then every 2 years until 5 years Solitary part-solid nodule * nodule size <6 mm - no CT follow-up required * nodule size >=6 mm - follow-up CT at 3-6 months. If unchanged, and solid component remains <6 mm, then annual follow-up for 5 years Multiple subsolid nodules * nodule size <6 mm - follow-up CT at 3-6 months, consider further follow-up at 2 and 4 years if stable * nodule size >=6 mm - follow-up CT at 3-6 months, subsequent management based on the most suspicious nodule(s) Electronically signed by: Juan Manuel Thompson M.D. 06/20/2017 2:02 PM Dictated Date/Time: 06/20/2017 1:56 PM
--- NOTE | 2017-06-20 14:12 | DIAGNOSTIC IMAGING REPORT ---
BILIARY ULTRASOUND CLINICAL HISTORY: Epigastric pain COMPARISON STUDY: No previous studies for comparison. FINDINGS: The pancreas appears sonographically normal. There is increased hepatic echogenicity consistent with hepatic steatosis. There is no ductal dilatation. The common bile duct measures 5 mm. The gallbladder surgically absent. There is no right-sided hydronephrosis. There is a subtle area of altered echogenicity within the mid to lower pole the left kidney measuring 4 cm. A solid renal mass cannot be excluded. A dedicated renal CT scan is recommended in follow-up. IMPRESSION: 1. Surgically absent gallbladder 2. No ductal dilatation 3. Suspected hepatic steatosis 4. 4 cm mid to lower pole left renal mass versus hypertrophied column of Demario. A dedicated renal CT scan is recommended in follow-up Electronically signed by: Rob Kinsey M.D. 06/20/2017 2:11 PM Dictated Date/Time: 06/20/2017 2:07 PM
[2017-06-20] MEDS: FAMOTIDINE 20 MG TAB PO SCH (21:18)
[2017-06-20] MEDS: ACETAMINOPHEN 325 MG TAB PO PRN (21:22)
[2017-06-21] VITALS (7 sets, daily range): BP systolic 140–164; BP diastolic 84–104; PULSE 51–80; TEMP 36.7–37; O2SAT 95–98
[2017-06-21 06:43] LABS: BLOOD UREA NITROGEN 14 mg/dl (7-18); BUN/CREATININE RATIO 17.8 (10-20); CALCIUM 7.7 mg/dl (8.5-10.1); CARBON DIOXIDE 27 mmol/L (21-32); CHLORIDE 108 mmol/L (98-107); CREATININE 0.78 mg/dl (0.60-1.40); GLUCOSE 101 mg/dl (70-99); SODIUM 141 mmol/L (136-145)
[2017-06-21 06:45] LABS: CHOLESTEROL 170 mg/dl (0-200); CHOLESTEROL/HDL RATIO 3.1; HDL CHOLESTEROL 54 mg/dl; LDL CHOLESTEROL CALCULATED 82 mg/dl; TRIGLYCERIDES 168 mg/dl (0-150); VERY LOW DENSITY LIPOPROT CALC 34 mg/dl
[2017-06-21 07:29] LABS: POTASSIUM 4.1 mmol/L (3.5-5.1)
[2017-06-21 07:31] LABS: MAGNESIUM 2.4 mg/dl (1.8-2.4)
[2017-06-21] MEDS: NSS + 20MEQ KCL 1000ML 1,000 ML IV SCH (07:57)
[2017-06-21] MEDS: HYDROCHLOROTHIAZIDE 25 MG TAB PO SCH (07:58)
[2017-06-21] MEDS: LOSARTAN POTASSIUM 25 MG TAB PO SCH (07:59)
[2017-06-21] MEDS: HEPARIN SOD 5000 UNIT/0.5 ML CARP SQ SCH (08:01)
[2017-06-21] MEDS: LORATADINE 10 MG TAB PO SCH (08:55)
[2017-06-21] MEDS: MONTELUKAST SOD 10 MG TAB PO SCH (08:56)
[2017-06-21] MEDS: FAMOTIDINE 20 MG TAB PO SCH (08:56)
[2017-06-21] MEDS: PANTOprazole INJ 40 MG in SYRINGE 0 ML IV SCH (10:26)
[2017-06-21] MEDS: ACETAMINOPHEN 325 MG TAB PO PRN (11:34)
[2017-06-21] MEDS ORDERED: LOSA1TAB PO (14:43)
--- NOTE | 2017-06-21 14:57 | Discharge Instructions ---
Discharge Instructions Date of Service Jun 21, 2017. Admission Reason for Admission: Chest Pain Discharge Discharge Diagnosis / Problem: chest pain rule out ACS by negative cardiac enzyme Discharge Goals Goal(s): Decrease discomfort, Improve function, Increase independence, Improve disease control, Improve nutritional status, Learn about illness, Diagnostic testing, Therapeutic intervention, Prevent Disease Progression, Specific goals Activity Recommendations Activity Limitations: resume your previous activity . Instructions / Follow-Up Instructions / Follow-Up you have Chest pain, troponin negative , was tried both exercise Stress Echo , you was no able to do it, was planned to do Dobutamine stress test it was not done because of you blood pressure too high you need to follow-up with your physician [place] to consider stress test in 1-2 week You need to go to emergency room if you have chest pain you report Right chest pain, d-dimer around 200, the possibility of thrombosis is low chest CT has no acute pulmonary embolization You have multiple lung nodules you have been follow-up with your provider, please keep doing it You have 1.4 cm lesion in the right lobe of liver, you need to follow up with your PCP You have left kidney mass about 4 cm need to follow up with your PCP to have further evaluation as well You told me you was on losartan 25 mg by mouth twice a day, you should continue that - you need to follow up with your primary care physician Dr. Salmon in 1 week, - take medication as instructed, never overdose or any misuse, or take with alcohol, because misuse of medicine may cause organ damage or , call your primary care physician if have questions of medicaitons. - call your primary care physician OR go to local emergency room if has any fever/chill, chest pain, shortness of breathing, nausea/vomiting/abdominal pain , facial droop/slurry speech/local weakness, or if has any questions. - fall precaution - diet as instructed - you need to follow up with your subspecialist - you should understand that it is important to follow up the above instruction , and "not following the above instruction" may cause delayed or missed care of your medical conditions which may cause permanent organ damage and even . Current Hospital Diet Patient's current hospital diet: AHA Diet (Heart Healthy), Low Sodium Diet (2gm Na) Discharge Diet Recommended Diet: AHA Diet (Heart Healthy) Procedures Procedures Performed: no Pending Studies Studies pending at discharge: no Laboratory Results Hemoglobin A1c Test 06/19/17 22:21 Range/Units Estimated Average Glucose 111 mg/dl Hemoglobin A1c 5.5 4.5-5.6 % Lipid Panel Test 06/21/17 05:52 Range/Units Triglycerides Level 168 H 0-150 mg/dl Cholesterol Level 170 0-200 mg/dl HDL Cholesterol 54 mg/dl Cholesterol/HDL Ratio 3.1 LDL Cholesterol, Calculated 82 mg/dl Medical Emergencies . Who to Call and When: Medical Emergencies: If at any time you feel your situation is an emergency, please call 911 immediately. . Non-Emergent Contact Non-Emergency issues call your: Primary Care Provider . . "Provider Documentation" section prepared by Gene Sanford. . VTE Core Measure Inpt VTE Proph given/why not?: Enoxaparin (Lovenox)SQ
[2017-06-21] MEDS ORDERED: LOSARTAN POTASSIUM 25 MG TAB PO ONE (15:00)
--- NOTE | 2017-06-21 15:11 | Discharge Summary ---
Discharge Summary Date of Service Jun 21, 2017. Discharge Summary Admission Date: Jun 20, 2017 at 01:29 Discharge Disposition: Home Principal Diagnosis: Chest pain, troponin negative , Problems/Secondary Diagnoses: Right chest pain, multiple lung nodules you have been follow-up with your provider, please keep doing it 1.4 cm lesion in the right lobe of liver, left kidney possible mass about 4 cm HTN Procedures: no Consultations: no Medication Reconciliation Changed Medications: Losartan Potassium (Cozaar) 25 Mg Tab 25 MG PO BID for 30 Days, #60 TAB (Changed from: DAILY) Continued Medications: Hydrochlorothiazide (Hctz) 25 Mg Tab 25 MG PO DAILY, TAB Loratadine (Claritin) 10 Mg Tab 10 MG PO DAILY, TAB Montelukast Sodium (Singulair) 10 Mg Tab 10 MG PO DAILY, TAB Potassium Chloride (Micro-K Ext Rel) Unknown Strength Capcr Unknown Dose PO DAILY, CAP Discharge Exam No more left sided chest pain, now has right shoulder pain, which is not new, tolerable Review of Systems: Constitutional: No fever, No chills, No sweats, No weight loss, No weakness , No fatigue, No problem reported Eyes: No worsening of vision, No eye pain, No redness, No discharge, No diplopia, No problem reported ENT: No hearing loss, No unusual epistaxis, No nasal symptoms, No sore throat, No tinnitus, No dental problems, No trouble swallowing, No problem reported Respiratory: No cough, No sputum, No wheezing, No shortness of breath, No dyspnea on exertion, No dyspnea at rest, No hemoptysis, No problem reported Cardiovascular: No chest pain, No orthopnea, No PND, No edema, No claudication, No palpitations, No problem reported Abdomen: No pain, No nausea, No vomiting, No diarrhea, No constipation, No GI bleeding, No problem reported Musculoskeletal: + joint pain Genitourinary - Male: No hematuria, No dysuria, No urinary frequency, No urinary urgency, No urinary hesitancy, No urinary retention, No urinary incontinence, No penile discharge, No lesions, No impotence, No problem reported Neurologic: No memory loss, No paralysis, No weakness, No numbness/tingling , No vertigo, No balance problems, No problem reported Psychiatric: No depression symptoms, No anhedonism, No anxiety, No insomnia , No substance abuse, No problem reported Endocrine: No fatigue, No excessive thirst, No excessive urination, No problem reported Hematologic / Lymphatic: No abnormal bleeding/bruising, No clotting problems , No swollen lymph nodes, No night sweats, No problem reported Integumentary: No rash, No itch, No new/changing skin lesions, No color change, No bleeding, No problem reported Physical Exam: General Appearance: WD/WN, no apparent distress, + obese Eyes: normal inspection, PERRL, EOMI ENT: normal ENT inspection, hearing grossly normal, TMs normal Neck: supple, no adenopathy, thyroid normal Respiratory/Chest: chest non-tender, + decreased breath sounds Cardiovascular: regular rate, rhythm, no edema, no gallop Abdomen / GI: normal bowel sounds, non tender, soft, no organomegaly Extremities: normal inspection, no calf tenderness, normal capillary refill 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 gerd. vs. anxiety etc. Chest pain r/o trop negative 2 set Not able to do Stress Echo AM because not able to be on treadmill, and heart rate not able to be reached to target level, initially he dose not want to do the dobutamine stress was planned to do Dobutamine stress test it was not done because of his blood pressure too high need to follow-up with your pcp in [place] red team to consider stress test in 1- 2 week told him need to go to emergency room if you have chest pain Right chest pain, d-dimer around 200, the possibility of thrombosis is low chest CT has no acute pulmonary embolization have multiple lung nodules you have been follow-up with his provider, please keep doing it have 1.4 cm lesion in the right lobe of liver, you need to follow up with his PCP have left kidney mass about 4 cm need to follow up with his PCP to have further evaluation as well reported was on losartan 25 mg by mouth twice a day, you should continue that Right chest pain, d-dimer around 200, the possibility of thrombosis is low However will check chest CT and right upper quadrant ultrasound to evaluation of right lower chest pain Hypokalemia, replaced and resolved HTN, , was having accelerated hypertension, he reported take losartan 25 mg by mouth twice a day prior to admission, recommend to continue this dose and continue follow-up with PCP DVT proph: Heparin Code: Full Instructions / Follow-Up you have Chest pain, troponin negative , was tried both exercise Stress Echo , you was no able to do it, was planned to do Dobutamine stress test it was not done because of you blood pressure too high you need to follow-up with your physician in [place] red team to consider stress test in 1-2 week You need to go to emergency room if you have chest pain you report Right chest pain, d-dimer around 200, the possibility of thrombosis is low chest CT has no acute pulmonary embolization You have multiple lung nodules you have been follow-up with your provider, please keep doing it You have 1.4 cm lesion in the right lobe of liver, you need to follow up with your PCP You have left kidney mass about 4 cm need to follow up with your PCP to have further evaluation as well You told me you was on losartan 25 mg by mouth twice a day, you should continue that - you need to follow up with your primary care physician Dr. Salmon in 1 week, - take medication as instructed, never overdose or any misuse, or take with alcohol, because misuse of medicine may cause organ damage or , call your primary care physician if have questions of medicaitons. - call your primary care physician OR go to local emergency room if has any fever/chill, chest pain, shortness of breathing, nausea/vomiting/abdominal pain , facial droop/slurry speech/local weakness, or if has any questions. - fall precaution - diet as instructed - you need to follow up with your subspecialist - you should understand that it is important to follow up the above instruction , and "not following the above instruction" may cause delayed or missed care of your medical conditions which may cause permanent organ damage and even . Total Time Spent: Greater than 30 minutes This includes examination of the patient, discharge planning, medication reconciliation, and communication with other providers. Discharge Instructions Please refer to the electronic Patient Visit Report (Discharge Instructions) for additional information.
== END 2017-06-21 17:59 | disposition home or self-care (01) ==
LOC: C.EDA 23:09 → C.2E 06-20 01:29 → ENRESERV 06-20 01:35
PROVIDERS: ADMIT Internal Medicine; ATTEND Hospitalist
DX: R07.9 Chest pain, unspecified (principal); R91.1 Solitary pulmonary nodule; K76.9 Liver disease, unspecified; I10 Essential (primary) hypertension; Z90.49 Acquired absence of other specified parts of digestive tract; G47.30 Sleep apnea, unspecified; Z82.49 Family history of ischemic heart disease and other diseases of the circulatory system